=== PATIENT | male | born 1940 | race Caucasian/White ===

== ENCOUNTER → 2017-01-05 | Outpatient (CLI) | payer MEDICARE, OTHER | END | disposition home or self-care (01) | LOC: LAB 10:35 | PROVIDERS: ATTEND Internal Medicine Cardiovascular Disease | DX: T46.0X6D Underdosing of cardiac-stimulant glycosides and drugs of similar action, subsequent encounter (principal) | CPT/HCPCS: 36415; 80162 ==

== ENCOUNTER → 2017-02-09 | Outpatient (CLI) | payer MEDICARE, OTHER | END | disposition home or self-care (01) | LOC: HDHVI->DVH 11:41 | PROVIDERS: ATTEND Internal Medicine Cardiovascular Disease | DX: H81.399 Other peripheral vertigo, unspecified ear (principal) | CPT/HCPCS: 93880 ==

== ENCOUNTER → 2017-02-26 | Outpatient (CLI) | payer MEDICARE, OTHER | END | disposition home or self-care (01) | LOC: Rad HDHVI 09:45 | PROVIDERS: ATTEND Internal Medicine Cardiovascular Disease | DX: I70.0 Atherosclerosis of aorta (principal); J98.4 Other disorders of lung; Z95.9 Presence of cardiac and vascular implant and graft, unspecified | CPT/HCPCS: 71020 ==

== ENCOUNTER → 2017-03-31 | Outpatient (CLI) | payer MEDICARE, OTHER ==
[~2017-03-31] MED LIST: ASPI81CH43 PO; ATO40T PO; DIGO0.1262 PO; MULT-928 PO
[2017-03-31 08:00] VITALS: BP 106/66
[2017-03-31 08:35] VITALS: BP 103/67
[2017-03-31 12:51] LABS: Basophils # (auto) 0 uL; DEFINITIVE VIEW TRANSMISSION; Eosinophils # (auto) 0 uL; Eosinophils % (auto) 0.1 % (0.0-7.0); Mean Platelet Volume 8.2 fL (7.4-10.4); Monocytes # (auto) 0.6 uL; White Blood Cell 9.5 10^3/uL (4.4-10.8)
[2017-03-31 12:53] LABS: Hematocrit 28.9 % (41.0-53.0); Hemoglobin 9.8 g/dL (13.5-17.5); Lymphocytes # (auto) 0.2 uL; Lymphocytes % (auto) 2.4 % (10.0-50.0); Mean Corpuscular Hemoglobin 35.4 pg (28.0-32.0); Mean Corpuscular Volume 104.2 fL (80.0-100.0); Monocytes % (auto) 6.4 % (0.0-12.0); Neutrophils # (auto) 8.6 uL; Neutrophils % (auto) 91.1 % (37.0-80.0); Platelet Count (auto) 183 10^3/uL (140-450)
[2017-03-31 13:00] LABS: Partial Thromboplastin Time 36.4 sec (22.64-33.71); Prothrombin Time 10.9 sec (9.37-12.3)
[2017-03-31 13:06] LABS: Red Cell Distribution Width 21.4 % (11.6-16.0)
[2017-03-31 13:16] LABS: Anisocytosis Slight; Macrocytosis Slight; Platelet Estimate Adequate
[2017-03-31 13:35] LABS: BUN/Creatinine Ratio 16.9; Calcium 8.1 mg/dL (8.5-10.1); Potassium 3.8 mmol/L (3.5-5.1)
== END | disposition home or self-care (01) ==
LOC: Rad HDHVI 07:54
PROVIDERS: ATTEND Internal Medicine Cardiovascular Disease
DX: I10 Essential (primary) hypertension (principal); D64.9 Anemia, unspecified; R79.1 Abnormal coagulation profile; Z01.812 Encounter for preprocedural laboratory examination
CPT/HCPCS: 36415; 80048; 85025; 85610; 85730; 93005; G0463

== ENCOUNTER → 2017-04-01 | Day surgery (SDC) | payer MEDICARE, OTHER ==
[~2017-04-01] VITALS: Ht 167.6 cm; Wt 88.9 kg
[~2017-04-01] MED LIST changes: +GLYCOPYRROLATE 0.2 MG/ML 1ML VIAL ONE; +IOHEXOL 350 MG/ML 100ML IJ ONE; +LIDOCAINE 2%HCL (LOCAL ANESTH.) INJ 20ML MDV ONE; +MIDAZOLAM HCL 1MG/1ML-2 ML VIAL ONE; +MIDO5TAB16 PO; +PHENYLEPHRINE HCL 10 MG/ML VL ONE; +fentaNYL CITRATE 100 MCG/2 ML VL ONE
== END | disposition home or self-care (01) ==
LOC: CATH 08:54
PROVIDERS: ATTEND Internal Medicine Cardiovascular Disease
DX: G45.9 Transient cerebral ischemic attack, unspecified (principal); I10 Essential (primary) hypertension
CPT/HCPCS: 36215; 36216; C1760; C1894; J1644; J7030; Q9967; 36223; 99152; J2250